=== PATIENT | female | born 1950 | race Caucasian/White ===

== ENCOUNTER → 2016-12-17 | Outpatient (CLI) | payer BC ==
[~2016-12-17] MED LIST: EFFSR150 PO; LEVO50TA60 PO; MELA1TAB3 PO; SIMV20TA2 PO
--- NOTE | 2016-12-17 14:09 | MAMMOGRAPHY REPORT ---
BILATERAL DIGITAL SCREENING MAMMOGRAM WITH CAD: 12/17/2016 CLINICAL HISTORY: Routine screening. Patient has no complaints. TECHNIQUE: Bilateral CC and MLO views were obtained. Current study was also evaluated with a Comput er Aided Detection (CAD) system. COMPARISON: Comparison is made to exams dated: 08/18/2014 mammogram, 08/03/2012 mammogram - [facility], 08/07/2009, and 10/04/2010 mammogram - [facility]. BREAST COMPOSITION: The tissue of both breasts is heterogeneously dense, which may obscure small ma sses. FINDINGS: A 7 mm circumscribed mass in the lower inner left breast is unchanged in size dating back to at least 08/19/2007, therefore likely benign. No new suspicious mass, architectural distortion or cluster of microcalcifications is seen. IMPRESSION: ACR BI-RADS CATEGORY 2: BENIGN There is no mammographic evidence of malignancy. A 1 year screening mammogram is recommended. The p atient will receive written notification of the results. Approximately 10% of breast cancers are not detected with mammography. A negative mammographic repor t should not delay biopsy if a clinically suggestive mass is present. Katie Montelongo M.D. ay/:12/17/2016 12:16:44 Hazmat Truck Driver: Ashley LACKEY(Wan)([place]), [facility] letter sent: Normal 1/2 BI-RADS Code: ACR BI-RADS Category 2: Benign
== END | disposition home or self-care (01) ==
LOC: C.MAMM 11:10
PROVIDERS: ATTEND Internal Medicine
DX: Z12.31 Encounter for screening mammogram for malignant neoplasm of breast (principal)

== ENCOUNTER → 2016-12-30 | Outpatient (CLI) | payer BC | END | disposition home or self-care (01) | LOC: C.PAPS 09:33 | PROVIDERS: ATTEND Obstetrics & Gynecology | DX: Z01.419 Encounter for gynecological examination (general) (routine) without abnormal findings (principal) ==

== ENCOUNTER 2020-07-20 21:09 | Inpatient (IN) ==
[2020-07-20] MEDS ORDERED: ONDANSETRON INJ 2 MG/ML 2 ML VIAL IV STA (21:43)
[2020-07-20] MEDS ORDERED: SODIUM CHLORIDE 0.9% 500 ML IV SCH (21:45)
[2020-07-20 21:59] LABS: Hematocrit (blood only) 34.8 % (37-47); Hemoglobin 11.8 g/dL (12.0-16.0); Immature Granulocytes # (auto) 0.02 K/uL (0.00-0.02); Immature Granulocytes % (auto) 0.2 %; Lymphocytes # (auto) 1.03 K/uL (1.2-3.4); Mean Corpuscular Hemoglobin 31.9 pg (25-34); Mean Corpuscular Hgb Conc 33.9 g/dL (32-36); Mean Corpuscular Volume 94.1 fL (80-100); Mean Platelet Volume 9.6 fL (7.4-10.4); Monocytes # (auto) 0.27 K/uL (0.11-0.59); Monocytes % (auto) 2.1 %; Neutrophils # (auto) 11.52 K/uL (1.4-6.5); Neutrophils % (auto) 89.7 %; Platelet Count 302 K/uL (130-400); RDW Coefficient of Variation 11.6 % (11.5-14.5); RDW Standard Deviation 39.5 fL (36.4-46.3); White Blood Count 12.84 K/uL (4.8-10.8)
[2020-07-20 22:17] LABS: Alanine Aminotransferase 21 U/L (12-78); Albumin Level 3.7 gm/dl (3.4-5.0); Aspartate Aminotransferase 21 U/L (15-37); BUN Creatinine Ratio 15.2 (10-20); Blood Urea Nitrogen 13 mg/dl (7-18); Calcium 8.7 mg/dl (8.5-10.1); Carbon Dioxide 25 mmol/L (21-32); Chloride 99 mmol/L (98-107); Est GFR (African American) 85.2; Est GFR (Non-African American) 73.5; Glucose 148 mg/dl (70-99); Potassium 3.8 mmol/L (3.5-5.1); Sodium 132 mmol/L (136-145)
[2020-07-20 22:19] LABS: Alkaline Phosphatase 79 U/L (45-117); Bilirubin,Total 0.6 mg/dl (0.2-1); Globulin 3.6 gm/dl (2.5-4.0); Total Protein 7.3 gm/dl (6.4-8.2)
[2020-07-20] MEDS ORDERED: METOCLOPRAMIDE HCL INJ 5 MG/ML 2 ML VIAL IV ONE (22:40)
--- NOTE | 2020-07-20 23:09 | Emergency Department Note ---
History of Present Illness General Chief complaint: Vomiting Stated complaint: vomiting History of Present Illness Maximum Pain Intensity: 0 This 70-year-old presents to the ER complaining of nausea and vomiting since having surgery today by OB Location: Abdomen Quality: Nauseated Severity: Moderate Duration: Today Timing: Today Context: Patient was concerned and came in Modifying factors: better with nothing; worse with activity Patient had bilateral oophorectomy by Dr. Hogue. Patient states she has not urinated since the surgery. She has vomited once. Patient denies chest pain, dyspnea, abdominal pain, fever, chills, flulike illness. Home Medications Home Medications Medication Instructions Recorded Confirmed Type aspirin 81 mg PO QAM 12/20/19 07/20/20 History levothyroxine 50 mcg PO QAM 12/20/19 07/20/20 History venlafaxine 75 mg PO QAM 12/20/19 07/20/20 History diphenhydramine HCl [Benadryl] 25 mg PO HS PRN 12/25/19 07/20/20 History hydrocodone-acetaminophen [[place]annel[place]] 1 tab PO Q8H PRN #9 tab 12/25/19 07/20/20 Rx melatonin 5 mg PO HS PRN 12/25/19 07/20/20 History atorvastatin 20 mg PO HS 07/06/20 07/20/20 History lisinopril 5 mg PO QAM 07/06/20 07/20/20 History metoprolol succinate 12.5 mg PO QAM 07/06/20 07/20/20 History ibuprofen 600 mg PO Q6H #30 tab 07/20/20 07/20/20 Rx Allergies Allergy/AdvReac Type Severity Reaction Status Date / Time codeine AdvReac Mild difficulty Unverified 07/20/20 21:47 moving arms/legs Past Med/Surg History Medical History CAD (coronary artery disease) Cardiac cath 01/2020 with 30% mid RCA lesion that was "hemodynamically insignificant with otherwise normal coronary arteries Degenerative disc disease, cervical Depression Diverticular disease History of migraine Hyperlipidemia Hypothyroidism Nonischemic cardiomyopathy Noted on echo-- per 01/2020 cardiac cath: EF 55% by LV gram with mild HK. Severe inferior HK on echo NOT seen on LV gram. Ovarian mass Surgical History History of blepharoplasty History of colonoscopy History of tonsillectomy and adenoidectomy History of tubal ligation History of wisdom tooth extraction Hx of cardiac cath 01/2020 Family History Aunt Family hx of colon cancer Social History Smoking Status: Never smoker Second Hand Exposure: No; Hx Alcohol Use: Yes Alcohol type: wine Hx Substance Use: No Preferred Language: Fijian Communication Ability: Effective Manager Project Required: No Beliefs That Will Affect Care: None Current Living Situation: Spouse Feels Safe at Home: Yes Review of Systems A total of 10 systems reviewed and were otherwise negative Physical Exam Vital Signs Vital Signs - 24 hr 07/20/20 21:10 07/20/20 21:48 07/20/20 21:52 Temperature 37.0 C Temperature Source Oral Pulse Rate 111 H 89 Pulse Rate from SpO2 Sensor Respiratory Rate 24 20 Respiratory Effort / Characteristics Non-Labored Spontaneous Respiratory Depth Normal Blood Pressure 153/79 H 150/87 H Blood Pressure Mean 103 101 Pulse Oximetry 94 97 98 Oxygen Delivery Method Room Air Room Air Sepsis Recent Fever Within 48 Hours Yes Sepsis New/Unexplained Change in Mental Status N/A Sepsis Action Taken by Nursing No Action Required 07/20/20 22:00 07/20/20 22:30 07/20/20 23:00 Temperature Temperature Source Pulse Rate 92 H 87 83 Pulse Rate from SpO2 Sensor Respiratory Rate 18 16 20 Respiratory Effort / Characteristics Respiratory Depth Blood Pressure 145/79 H 149/85 H 150/72 H Blood Pressure Mean 118 113 118 Pulse Oximetry 97 97 97 Oxygen Delivery Method Sepsis Recent Fever Within 48 Hours Sepsis New/Unexplained Change in Mental Status Sepsis Action Taken by Nursing 07/20/20 23:01 07/20/20 23:30 07/21/20 00:00 Temperature Temperature Source Pulse Rate 85 78 78 Pulse Rate from SpO2 Sensor 85 Respiratory Rate 17 16 18 Respiratory Effort / Characteristics Respiratory Depth Blood Pressure 142/85 H 148/72 H Blood Pressure Mean 101 90 Pulse Oximetry 97 96 95 Oxygen Delivery Method Sepsis Recent Fever Within 48 Hours Sepsis New/Unexplained Change in Mental Status Sepsis Action Taken by Nursing 07/21/20 00:45 Temperature Temperature Source Pulse Rate 82 Pulse Rate from SpO2 Sensor Respiratory Rate 20 Respiratory Effort / Characteristics Respiratory Depth Blood Pressure 140/82 Blood Pressure Mean 95 Pulse Oximetry 98 Oxygen Delivery Method Sepsis Recent Fever Within 48 Hours Sepsis New/Unexplained Change in Mental Status Sepsis Action Taken by Nursing VITALS: Vitals are noted on the nurse's note and reviewed by myself. Vital signs stable. GENERAL: Pleasant female, in no acute distress, nondiaphoretic, well-developed well-nourished. SKIN: Capillary reflex less than 2 seconds. HEENT: Normocephalic. PERRLA. EOMI. Nares patent. Mucous membranes moist. Neck is supple without nuchal rigidity. HEART: Regular rate and rhythm LUNGS: Clear to auscultation bilaterally without wheezes, rales or rhonchi. No retractions or accessory muscle use. ABDOMEN: Positive bowel sounds x 4. Normal tympanic percussion. Soft, incisional sites intact without signs of infection, nontender, without masses or organomegaly. Gómez sign negative. No guarding or rebound tenderness. No CVA tenderness MUSCULOSKELETAL: No gross musculoskeletal defects. NEURO: Patient was alert and oriented to person place and time. No focal neurological deficits. Course Administered Medications Discontinued Medications Sodium Chloride (Nss) 500 mls @ 999 mls/hr IV .Q31M LUCIA Stop: 07/20/20 22:15 Last Infusion: 07/20/20 22:44 Dose: 0 mls/hr Documented by: [id number] Admin: 07/20/20 21:52 Dose: 999 mls/hr Documented by: [id number] Sodium Chloride (Nss 1000ml) 500 mls @ 999 mls/hr IV .Q31M ONE Stop: 07/21/20 01:01 Last Infusion: 07/21/20 01:26 Dose: 0 mls/hr Documented by: [id number] Admin: 07/21/20 00:46 Dose: 999 mls/hr Documented by: [id number] Metoclopramide HCl (Metoclopramide Hcl Inj 5 Mg/Ml 2 Ml Vial) 5 mg IV ONE ONE Stop: 07/20/20 22:41 Last Admin: 07/20/20 22:43 Dose: 5 mg Documented by: [id number] Ondansetron HCl (Ondansetron Inj 2 Mg/Ml 2 Ml Vial) 4 mg IV NOW STA Stop: 07/20/20 21:44 Last Admin: 07/20/20 21:52 Dose: 4 mg Documented by: [id number] Ondansetron HCl (Ondansetron Inj 2 Mg/Ml 2 Ml Vial) 4 mg IV NOW STA Stop: 07/21/20 00:33 Last Admin: 07/21/20 00:46 Dose: 4 mg Documented by: [id number] Medical Decision Making Medical Records Attestation: I reviewed the patient's medical records. Home Medications Current Medication List: was personally reviewed by me Laboratory Data Attestation: I reviewed the patient's lab results. Result diagrams: 07/20/20 21:45 07/20/20 21:45 Lab Results 07/20/20 07/20/20 07/20/20 Range/Units 21:45 21:45 22:25 WBC 12.84 H (4.8-10.8) K/uL RBC 3.70 L (4.2-5.4) M/uL Hgb 11.8 L (12.0-16.0) g/dL Hct 34.8 L (37-47) % MCV 94.1 (80-100) fL MCH 31.9 (25-34) pg MCHC 33.9 (32-36) g/dL RDW Std Deviation 39.5 (36.4-46.3) fL RDW Coeff of Radha 11.6 (11.5-14.5) % Plt Count 302 (130-400) K/uL MPV 9.6 (7.4-10.4) fL Immature Gran % (Auto) 0.2 % Neut % (Auto) 89.7 % Lymph % (Auto) 8.0 % [place] % (Auto) 2.1 % Eos % (Auto) 0.0 % Baso % (Auto) 0.0 % Neut # (Auto) 11.52 H (1.4-6.5) K/uL Lymph # (Auto) 1.03 L (1.2-3.4) K/uL [place] # (Auto) 0.27 (0.11-0.59) K/uL Eos # (Auto) 0.00 (0-0.5) K/uL Baso # (Auto) 0.00 (0-0.2) K/uL Immature Gran # (Auto) 0.02 (0.00-0.02) K/uL Sodium 132 L (136-145) mmol/L Potassium 3.8 (3.5-5.1) mmol/L Chloride 99 (98-107) mmol/L Carbon Dioxide 25 (21-32) mmol/L Anion Gap 8.0 (3-11) BUN 13 (7-18) mg/dl Creatinine 0.82 (0.6-1.2) mg/dl Est Cr Clr Drug Dosing Not Reportable Est GFR ( Amer) 85.2 Est GFR (Non-Af Amer) 73.5 BUN/Creatinine Ratio 15.2 (10-20) Glucose 148 H (70-99) mg/dl Calcium 8.7 (8.5-10.1) mg/dl Magnesium 2.1 (1.8-2.4) mg/dl Total Bilirubin 0.6 (0.2-1) mg/dl AST 21 (15-37) U/L ALT 21 (12-78) U/L Alkaline Phosphatase 79 (45-117) U/L Total Protein 7.3 (6.4-8.2) gm/dl Albumin 3.7 (3.4-5.0) gm/dl Globulin 3.6 (2.5-4.0) gm/dl Albumin/Globulin Ratio 1.0 (0.9-2) TSH 1.160 (0.300-4.500) uIu/ml Urine Color Yellow Urine Appearance Clear (Clear) Urine pH 7.0 (4.5-7.5) Ur Specific [place] 1.022 (1.000-1.030) Urine Protein Trace H (Negative) Urine Glucose (UA) Negative (Negative) Urine Ketones Trace H (Negative) Urine Blood 2+ H (Negative) Urine Nitrite Negative (Negative) Urine Bilirubin Negative (Negative) Urine Urobilinogen Negative (Negative) Ur Leukocyte Esterase 2+ H (Negative) Urine WBC (Auto) 10-30 H (0-5) /hpf Urine RBC (Auto) >30 H (0-4) /hpf U Hyaline Cast (Auto) 1-5 (0-5) /lpf U Epithel Cells (Auto) >30 H (0-5) /lpf Urine Bacteria (Auto) Negative (Negative) Ur Renal Epithelial Cell Not Reportable Urine Mucus Present A (None Prsent) Imaging Data Attestation: I personally reviewed and interpreted this imaging study as follows: Blood Pressure Blood Pressure Findings: Elevated blood pressure Blood Pressure Disposition: Referred to patients primary care provider MDM Narrative Prior records/ancillary studies reviewed. Triage Nursing notes reviewed. Additional history obtained from the family. The patient's history was concerning for nausea, vomiting, who had surgery today Differential diagnosis: Etiologies such as side effect anesthesia, urinary retention, UTI, postsurgical complication, gastroenteritis, food borne illness, infections, appendicitis, diverticulitis, inflammatory bowel disease, obstruction, GI bleed, biliary pathology, as well as others were entertained. Physical examination findings: As above. Abdominal examination revealed tenderness. Vital signs reviewed and revealed stable. ER treatment provided: IV hydration 1 L NSS. Zofran, Reglan Bladder scan with 200 mL's On reassessment the patient felt better. Patient was tolerating p.o. intake. Diagnostics interpretation by me: The labs revealed mild leukocytosis. Mild hyperglycemia without DKA Consultation: A consultation was placed with OB Dr. Rizo and recommends medical admission for the vomiting and weakness. I spoke to Dr. Gordon, the hospitalist. The case was discussed and diagnostics were reviewed. The patient was evaluated in the ER for further treatment. This appears to be consistent with nausea vomiting and weakness. Patient was t oo weak to walk. Symptoms could be related to recent surgery. Patient did not have acute abdomen on exam. Patient is agreeable to treatment plan of admission. OB and medicine were consulted.. Stable labs. No UTI. By the evaluation outlined above emergent etiologies such as appendicitis, diver ticulitis, obstruction, cardiac sources, mesenteric ischemia, aortic pathology, inflammatory bowel disease, renal colic, PUD, biliary pathology, UTI, as well as others were deemed relatively unlikely. The pt informed about the findings as listed above. All questions were answered and pleased with the treatment. The chart was completed utilizing [employer] voice recognition software. Gr ammatical errors, random word insertions, pronoun errors, and incomplete sentences are an occassional consequence of this system due to software limitations, ambient noise, and hardware issues. Any formal questions or concerns about the content, text, or information contained within the body of this dictation should be directly addressed to the physician bioinformatics assistant for clarification. Impression & Plan Nausea & vomiting, Weakness Discharge Plan Visit Data Chief Complaint: Vomiting Stated Complaint: vomiting ED Provider: Nikita Pat ED Midlevel Provider: Ange Juarez Discharge Problem: Nausea & vomiting, Weakness Patient Disposition: Being Evaluated by Hospitalist Condition: Good Forms Stand Alone Forms: My [facility] [employer] Prescriptions Prescriptions: No Action aspirin 81 mg Tablet,Delayed Release (Dr/Ec) 81 mg PO QAM RF: 0 levothyroxine 50 mcg Tablet 50 mcg PO QAM RF: 0 venlafaxine 75 mg Tablet Extended Release 24hr 75 mg PO QAM RF: 0 diphenhydramine HCl [Benadryl] 25 mg Capsule 25 mg PO HS PRN (Reason: Sleep) RF: 0 melatonin 2.5 mg Tablet,Chewable 5 mg PO HS PRN (Reason: Sleep) RF: 0 hydrocodone-acetaminophen [Cannel[place]] 5-325 mg tablet 1 tab PO Q8H PRN (Reason: pain) Qty: 9 RF: 0 lisinopril 5 mg Tablet 5 mg PO QAM RF: 0 atorvastatin 20 mg Tablet 20 mg PO HS RF: 0 metoprolol succinate 25 mg Tablet Extended Release 24 Hr 12.5 mg PO QAM RF: 0 ibuprofen 600 mg Tablet 600 mg PO Q6H Qty: 30 RF: 0 Referrals Referrals: Shahnaz Woodson MD [Primary Care Provider] - Discharge Problem: Nausea & vomiting Qualifiers: Vomiting type: unspecified Vomiting Intractability: non-intractable Qualified Code(s): R11.2 - Nausea with vomiting, unspecified
[2020-07-20 23:38] LABS: Appearance Urine Clear (Clear); Bacteria Urine Automated Negative (Negative); Bilirubin Urine Negative (Negative); Blood Urine 2+ (Negative); Color Urine Yellow; Epithelial Cell Urine Auto >30 /lpf (0-5); Glucose Urine UA Negative (Negative); Ketones Urine Trace (Negative); Leukocyte Esterase Urine 2+ (Negative); Nitrite Urine Negative (Negative); Protein Urine Trace (Negative); RBC Urine Automated >30 /hpf (0-4); Specific Gravity Urine 1.022 (1.000-1.030); Urobilinogen Urine Negative (Negative)
[2020-07-21 00:11] LABS: Mucus Urine Present (None Prsent)
[2020-07-21] MEDS ORDERED: SODIUM CHLORIDE 0.9% 1000ML 500 ML IV ONE (00:31)
[2020-07-21] MEDS ORDERED: ONDANSETRON INJ 2 MG/ML 2 ML VIAL IV STA (00:32)
--- NOTE | 2020-07-21 01:07 | Emergency Department Note ---
General (ED) Blank Date of Service July 21, 2020 I have personally evaluated this patient examined her and reviewed the pertinent labs and data. I have discussed the case with Larry, the physician assistant kitchen manager and agree with the plan. Please refer to the PA note. This patient had a bilateral oophorectomy today done by Dr. De Jesus. This was done because she had a large cyst that was intermittently coursing. She had this done laparoscopically when she got home she started feeling nauseated. She did take GoLYTELY prior to the procedure and has not had any bowel movement since then she has had some decreased urine output as well. She denies abdominal pain just feeling very nauseated. She has received IV fluids as well as antiemetics here. On my exam, her abdomen is benign incisions are intact without redness or warmth or drainage. No signs to suggest infection. Her hemoglobin is in the 11 range. She will be admitted/observed for hydration and further treatment and evaluation and may be that her symptoms are from anesthesia or she could have an ileus.
[2020-07-21 01:22] LABS: Magnesium 2.1 mg/dl (1.8-2.4)
[2020-07-21] MEDS ORDERED: CEFEPIME 2,000 MG/20 ML VIAL IV STA (01:44)
[2020-07-21] MEDS ORDERED: LORazepam 0.25 MG/0.5 ML VIAL IV PRN (01:44)
--- NOTE | 2020-07-21 01:47 | History & Physical Report ---
Date of Service July 21, 2020 Assessment & Plan (1) Sepsis: Secondary to complicated UTI Recent BSO for bilateral ovarian cysts chronic systolic heart failure secondary to nonischemic cardiomyopathy (EF 35 to 39%, TTE 2019), patient on the dry side history nonocclusive CAD as per records hx chronic LBBB hypothyroidism, euthyroid as of today's TSH Hyperglycemia possible prediabetes hemoglobin A1c 5.30 October 2018 GMF Cultures, check lactic acid Cefepime Gentle IV hydration Gynecology consult for postop eval (ER provider already in touch with Dr. Arrington.) Update hemoglobin A1c DVT prophylaxis. Lovenox subcu Full code Text document was generated using [employer] voice recognition software. It may contain grammatical or spelling errors. Kindly contact undersigned for clarification of any documentation item in question. History of Present Illness Chief Complaint: Nausea, emesis, urinary retention Primary Care Provider: Garfield Woodson MD History obtained from patient and records. Medical history significant for chronic systolic heart failure secondary to nonischemic cardiomyopathy (EF 35 to 39%, TTE 2019), history nonocclusive CAD as per records, Chronic LBBB, hypothyroidism, mood disorder. Yesterday, patient underwent elective bilateral salpingo-oophorectomy at same- day surgery for bilateral ovarian cysts yesterday. n ER visit last October 2019 for left ovarian torsion. Post procedure yesterday, patient noted dysuria symptoms without urinary retention. No fever, no chills, no chest pain, no S OB. Not enough urine on postop bladder scan as per patient. Patient discharged home with instructions to drink a lot of water. At home, patient with bothersome urinary retention/dysuria later followed by nausea symptoms. No actual abdominal/flank pain as per patient. On the way to the ER, patient had episodes of emesis. Patient noted to be tremulous as she alighted from vehicle as per patient account. Urine noted to be very dark at the ER. Intractable symptoms at the ER. 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 Allergies Allergy/AdvReac Type Severity Reaction Status Date / Time codeine AdvReac Mild difficulty Unverified 07/20/20 21:47 moving arms/legs Home Medications Home Medications Medication Instructions Recorded Confirmed Type aspirin 81 mg PO QAM 12/20/19 07/20/20 History levothyroxine 50 mcg PO QAM 12/20/19 07/20/20 History venlafaxine 75 mg PO QAM 12/20/19 07/20/20 History diphenhydramine HCl [Benadryl] 25 mg PO HS PRN 12/25/19 07/20/20 History hydrocodone-acetaminophen [[place]] 1 tab PO Q8H PRN #9 tab 12/25/19 07/20/20 Rx melatonin 5 mg PO HS PRN 12/25/19 07/20/20 History atorvastatin 20 mg PO HS 07/06/20 07/20/20 History lisinopril 5 mg PO QAM 07/06/20 07/20/20 History metoprolol succinate 12.5 mg PO QAM 07/06/20 07/20/20 History ibuprofen 600 mg PO Q6H #30 tab 07/20/20 07/20/20 Rx Past Med/Surg History Medical History CAD (coronary artery disease) Cardiac cath 01/2020 with 30% mid RCA lesion that was "hemodynamically insignificant with otherwise normal coronary arteries Degenerative disc disease, cervical Depression Diverticular disease History of migraine Hyperlipidemia Hypothyroidism Nonischemic cardiomyopathy Noted on echo-- per 01/2020 cardiac cath: EF 55% by LV gram with mild HK. Severe inferior HK on echo NOT seen on LV gram. Ovarian mass Surgical History History of blepharoplasty History of colonoscopy History of tonsillectomy and adenoidectomy History of tubal ligation History of wisdom tooth extraction Hx of cardiac cath 01/2020 Family History Aunt Family hx of colon cancer Social History Smoking Status: Never smoker Second Hand Exposure: No; Hx Alcohol Use: Yes Alcohol type: wine Hx Substance Use: No Preferred Language: Vietnamese Communication Ability: Effective It Infrastructure Engineer Required: No Beliefs That Will Affect Care: None Current Living Situation: Spouse Other Information That Helps Us Care for You: No Feels Safe at Home: Yes Safety Concerns: Feels Safe At This Time Review of Systems Review of Systems: As per HPI, all 10 systems reviewed, all other ROS negative Physical Exam Physical Exam: GENERAL: uncomfortable, anxious, no respiratory distress SKIN: Normal color, warm HEENT: [place] palpebral conjunctivae, no ptosis, dry buccal mucosa NECK : Supple, no tenderness CHEST : CTA, no tenderness HEART : RRR, no obvious murmurs ABDOMEN: Some distention, nontender EXTREMITIES : No LE swelling/tenderness, no other conspicuous deformities noted NEUROLOGIC : Coherent, no facial asymmetry, tremulous hands, no other gross focality Results & Data Results & Data ([facility] [place]) Vital Signs (Past 12 Hours) Vital Signs Temp Pulse Resp BP Pulse Ox 07/21/20 01:30 96 H 16 142/89 H 97 07/21/20 01:00 81 18 155/88 H 99 07/21/20 00:45 82 20 140/82 98 07/21/20 00:00 78 18 148/72 H 95 07/20/20 23:30 78 16 142/85 H 96 07/20/20 23:01 85 17 97 07/20/20 23:00 83 20 150/72 H 97 07/20/20 22:30 87 16 149/85 H 97 07/20/20 22:00 92 H 18 145/79 H 97 07/20/20 21:52 98 07/20/20 21:48 89 20 150/87 H 97 07/20/20 21:10 37.0 C 111 H 24 153/79 H 94 Laboratory Results Laboratory Results WBC 12.84 K/uL (4.8-10.8) H 07/20/20 21:45 RBC 3.70 M/uL (4.2-5.4) L 07/20/20 21:45 Hgb 11.8 g/dL (12.0-16.0) L 07/20/20 21:45 Hct 34.8 % (37-47) L 07/20/20 21:45 MCV 94.1 fL (80-100) 07/20/20 21:45 MCH 31.9 pg (25-34) 07/20/20 21:45 MCHC 33.9 g/dL (32-36) 07/20/20 21:45 RDW Std Deviation 39.5 fL (36.4-46.3) 07/20/20 21:45 RDW Coeff of Radha 11.6 % (11.5-14.5) 07/20/20 21:45 Plt Count 302 K/uL (130-400) 07/20/20 21:45 MPV 9.6 fL (7.4-10.4) 07/20/20 21:45 Immature Gran % (Auto) 0.2 % 07/20/20 21:45 Neut % (Auto) 89.7 % 07/20/20 21:45 Lymph % (Auto) 8.0 % 07/20/20 21:45 [place] % (Auto) 2.1 % 07/20/20 21:45 Eos % (Auto) 0.0 % 07/20/20 21:45 Baso % (Auto) 0.0 % 07/20/20 21:45 Neut # (Auto) 11.52 K/uL (1.4-6.5) H 07/20/20 21:45 Lymph # (Auto) 1.03 K/uL (1.2-3.4) L 07/20/20 21:45 [place] # (Auto) 0.27 K/uL (0.11-0.59) 07/20/20 21:45 Eos # (Auto) 0.00 K/uL (0-0.5) 07/20/20 21:45 Baso # (Auto) 0.00 K/uL (0-0.2) 07/20/20 21:45 Immature Gran # (Auto) 0.02 K/uL (0.00-0.02) 07/20/20 21:45 Sodium 132 mmol/L (136-145) L 07/20/20 21:45 Potassium 3.8 mmol/L (3.5-5.1) 07/20/20 21:45 Chloride 99 mmol/L (98-107) 07/20/20 21:45 Carbon Dioxide 25 mmol/L (21-32) 07/20/20 21:45 Anion Gap 8.0 (3-11) 07/20/20 21:45 BUN 13 mg/dl (7-18) 07/20/20 21:45 Creatinine 0.82 mg/dl (0.6-1.2) 07/20/20 21:45 Est Cr Clr Drug Dosing Not Reportable 07/20/20 21:45 Est GFR ( Amer) 85.2 07/20/20 21:45 Est GFR (Non-Af Amer) 73.5 07/20/20 21:45 BUN/Creatinine Ratio 15.2 (10-20) 07/20/20 21:45 Glucose 148 mg/dl (70-99) H 07/20/20 21:45 Calcium 8.7 mg/dl (8.5-10.1) 07/20/20 21:45 Magnesium 2.1 mg/dl (1.8-2.4) 07/20/20 21:45 Total Bilirubin 0.6 mg/dl (0.2-1) 07/20/20 21:45 AST 21 U/L (15-37) 07/20/20 21:45 ALT 21 U/L (12-78) 07/20/20 21:45 Alkaline Phosphatase 79 U/L (45-117) 07/20/20 21:45 Total Protein 7.3 gm/dl (6.4-8.2) 07/20/20 21:45 Albumin 3.7 gm/dl (3.4-5.0) 07/20/20 21:45 Globulin 3.6 gm/dl (2.5-4.0) 07/20/20 21:45 Albumin/Globulin Ratio 1.0 (0.9-2) 07/20/20 21:45 Procalcitonin < 0.05 ng/ml (0-0.5) 07/20/20 21:45 TSH 1.160 uIu/ml (0.300-4.500) 07/20/20 21:45 Urine Color Yellow 07/20/20 22:25 Urine Appearance Clear (Clear) 07/20/20 22:25 Urine pH 7.0 (4.5-7.5) 07/20/20 22:25 Ur Specific [place] 1.022 (1.000-1.030) 07/20/20 22:25 Urine Protein Trace (Negative) H 07/20/20 22:25 Urine Glucose (UA) Negative (Negative) 07/20/20 22:25 Urine Ketones Trace (Negative) H 07/20/20 22:25 Urine Blood 2+ (Negative) H 07/20/20 22:25 Urine Nitrite Negative (Negative) 07/20/20 22:25 Urine Bilirubin Negative (Negative) 07/20/20 22:25 Urine Urobilinogen Negative (Negative) 07/20/20 22:25 Ur Leukocyte Esterase 2+ (Negative) H 07/20/20 22:25 Urine WBC (Auto) 10-30 /hpf (0-5) H 07/20/20 22:25 Urine RBC (Auto) >30 /hpf (0-4) H 07/20/20 22:25 U Hyaline Cast (Auto) 1-5 /lpf (0-5) 07/20/20 22:25 U Epithel Cells (Auto) >30 /lpf (0-5) H 07/20/20 22:25 Urine Bacteria (Auto) Negative (Negative) 07/20/20 22:25 Ur Renal Epithelial Cell Not Reportable 07/20/20 22:25 Urine Mucus Present (None Prsent) A 07/20/20 22:25 Diagnostic Findings Chest x-ray as per my interpretation no infiltrate
[2020-07-21] MEDS ORDERED: LORazepam 0.25 MG/0.5 ML VIAL IV STA (01:50)
[2020-07-21] MEDS ORDERED: LORazepam 2 MG/4 ML VIAL ONE (01:50)
[2020-07-21] MEDS ORDERED: NSS + 20MEQ KCL 20 MEQ/1,000 ML BAG IV ONE (02:10)
[2020-07-21] MEDS: METOPROLOL SUCC 25MG EXT REL TAB PO SCH (03:35)
[2020-07-21] MEDS ORDERED: HYDROCODONE/ACETAMOPHEN 5/325MG TAB PO PRN (03:47)
[2020-07-21] MEDS ORDERED: PROMETHAZINE HCL 12.5 MG in SODIUM CHLORIDE 0.9% 50 ML IV PRN (03:47)
[2020-07-21] MEDS ORDERED: KETOROLAC TROMETHAMINE 15 MG/ML VIAL IV PRN (03:47)
[2020-07-21] MEDS ORDERED: ACETAMINOPHEN 325 MG TAB PO PRN (03:47)
[2020-07-21] MEDS ORDERED: POLYETHYLENE (MIRALAX) 17 GM PACK PO PRN (03:47)
[2020-07-21] MEDS ORDERED: MELATONIN 3 MG TAB PO PRN (04:10)
[2020-07-21] MEDS: PATIENT'S HEIGHT AND/OR WEIGHT NEEDED SCH ×2 (04:17→06:40)
[2020-07-21 06:09] LABS: Basophils # (auto) 0.01 K/uL (0-0.2); Basophils % (auto) 0.1 %; Eosinophils # (auto) 0.01 K/uL (0-0.5); Eosinophils % (auto) 0.1 %; Hematocrit (blood only) 32.5 % (37-47); Hemoglobin 10.8 g/dL (12.0-16.0); Immature Granulocytes # (auto) 0.03 K/uL (0.00-0.02); Immature Granulocytes % (auto) 0.2 %; Lymphocytes # (auto) 1.91 K/uL (1.2-3.4); Lymphocytes % (auto) 14.2 %; Mean Corpuscular Hemoglobin 31.8 pg (25-34); Mean Corpuscular Hgb Conc 33.2 g/dL (32-36); Mean Corpuscular Volume 95.6 fL (80-100); Mean Platelet Volume 9.6 fL (7.4-10.4); Monocytes # (auto) 0.99 K/uL (0.11-0.59); Monocytes % (auto) 7.4 %; Platelet Count 288 K/uL (130-400); RDW Coefficient of Variation 11.7 % (11.5-14.5); RDW Standard Deviation 40.5 fL (36.4-46.3); White Blood Count 13.45 K/uL (4.8-10.8)
[2020-07-21 06:37] LABS: BUN Creatinine Ratio 13.3 (10-20); Calcium 8.2 mg/dl (8.5-10.1); Creatinine Clr Calc Pharmacy 53.8 ml/min; Est GFR (African American) 86.5; Est GFR (Non-African American) 74.6; Potassium 4.1 mmol/L (3.5-5.1)
[2020-07-21] MEDS: LEVOTHYROXINE SODIUM 50 MCG TABLET PO SCH (06:40)
[2020-07-21 07:09] LABS: Estimated Average Glucose 126 mg/dl
[2020-07-21] MEDS ORDERED: DAPTOMYCIN CONSULT ACTIVE PRN (07:45)
[2020-07-21] MEDS ORDERED: PIPERACILL/TAZOBAC CONSULT ACTIVE PRN (07:48)
--- NOTE | 2020-07-21 07:50 | XRay Report ---
XR chest 1V portable CLINICAL HISTORY: sepsis COMPARISON STUDY: No previous studies for comparison. FINDINGS: The cardiac and mediastinal contours are normal. There is no evidence of focal pulmonary co nsolidation. There is no evidence of failure. No pleural effusions are visualized.[ IMPRESSION: No active disease in the chest. ACT 112: Negative or not required by law. Electronically signed by: Antonio Adames M.D. 07/21/2020 7:48 AM
[2020-07-21] MEDS ORDERED: PIPERACILLIN/TAZOBACTAM 3.375 GM in DEXTROSE 5% 100 ML IV ONE (08:30)
[2020-07-21] MEDS ORDERED: CEFEPIME CONSULT ACTIVE PRN (09:00)
[2020-07-21] MEDS ORDERED: ENOXAPARIN INJ 30 MG/0.3 ML SYR SQ SCH (09:00)
[2020-07-21] MEDS: DOCUSATE SODIUM 100 MG CAP PO SCH (09:01)
[2020-07-21] MEDS: lisinopriL 5 MG TAB PO SCH (09:01)
[2020-07-21] MEDS: ASPIRIN 81 MG ECTAB PO SCH (09:01)
[2020-07-21] MEDS: VENLAFAXINE HCL XR 75 MG CAPXR PO SCH (09:01)
[2020-07-21] MEDS: DAPTOmycin 200 MG in SYRINGE 0 ML IV SCH (09:11)
--- NOTE | 2020-07-21 11:17 | Gynecologic Progress Note ---
Date of Service July 21, 2020 Assessment & Plan Admission and Anticipated Discharge Date Admission Date: July 21, 2020 Subjective Pt is s/p BSO on 07/20/20 and was discharged home post op Returned to ED for urinary retention, nausea and vomiting Pt is presently on antibx ofr elev WBC Feeling much better Tolerated PO food and Meds this Morning Blood and urine culx Pending Results & Data ([facility]) Vital Signs (Past 12 Hours) Vital Signs Temp Pulse Pulse Resp BP BP Pulse Ox 07/21/20 08:04 37.0 C 80 18 107/64 96 07/21/20 03:45 36.8 C 87 18 128/79 99 07/21/20 02:30 88 16 144/75 H 95 07/21/20 02:00 95 H 18 136/84 94 07/21/20 01:30 96 H 16 142/89 H 97 07/21/20 01:00 81 18 155/88 H 99 07/21/20 00:45 82 20 140/82 98 07/21/20 00:00 78 18 148/72 H 95 07/20/20 23:30 78 16 142/85 H 96
[2020-07-21] MEDS ORDERED: CEFEPIME 2,000 MG in SYRINGE 7.5 ML IV SCH (14:00)
[2020-07-21] MEDS: PIPERACILLIN/TAZOBACTAM 3.375 GM in DEXTROSE 5% 100 ML IV SCH ×2 (14:11→22:37)
--- NOTE | 2020-07-21 15:36 | Hospitalist Progress Note ---
Date of Service July 21, 2020 Assessment & Plan (1) Sepsis: Secondary to complicated UTI Recent BSO for bilateral ovarian cysts Lactic acid 1.8 Blood cultures and urine culture pending Received cefepime on admission, concern for UTI as patient could not void At this point not clear if patient was actually septic on admission, white cell count elevated, could have been due to recent surgery Continue gentle IV hydration Patient is now feeling better, she is able to void urine Gynecology consult for postop eval - Dr. Killian evaluated patient today 07/21 (ER provider contacted Dr. Arrington) Prediabetes Hyperglycemia possible prediabetes hemoglobin A1c 5.30 October 2018 Current A1c 6.0% -consistent with prediabetes Follow-up with PCP Chronic systolic heart failure secondary to nonischemic cardiomyopathy (EF 35 to 39%, TTE 2019), patient on the dry side history nonocclusive CAD as per records hx chronic LBBB Hypothyroidism, euthyroid as of today's TSH DVT prophylaxis. Lovenox subcu on admission, will switch to SCDs Full code Admission and Anticipated Discharge Date Admission Date: July 21, 2020 Subjective Patient is lying in bed, in no acute distress. She said that she feels much better. Yesterday she could not void urine after her surgery, that has resolved, and she has not much trouble urinating now. She was also very tremulous and could not walk yesterday, now she feels much better. Currently denies any fevers, chills, chest pain, shortness of breath, she has some abdominal pain which is expected postop, no nausea or vomiting. She is passing flatus. She is voiding urine. 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 Review of Systems Review of Systems: All systems reviewed & are unremarkable except as noted in HPI & below Constitutional: no fever and no chills Respiratory: no cough and no dyspnea Cardiovascular: no chest pain and no palpitations Gastrointestinal: + abdominal pain (Some abdominal discomfort, postop); no nausea and no vomiting Genitourinary: + dysuria Physical Exam Physical Exam: GENERAL: Elderly female, lying in bed, in no acute distress HEENT: Normocephalic, atraumatic, EOMI, PERRL, pink palpebral conjunctivae NECK : Supple, no tenderness CHEST : CTAB no wheezing, rhonchi or crackles HEART : RRR, no obvious murmurs ABDOMEN: Positive bowel sounds, soft, surgical incisions noted, some mild bruising noted, mild tenderness to palpation EXTREMITIES : No LE swelling/tenderness, moves all 4 extremities spontaneously and without difficulty SKIN: warm, dry, surgical incisions noted on abdomen, and mild bruising, postop NEUROLOGIC : Alert and oriented x3, no facial asymmetry, speech fluent, moves all 4 extremities spontaneously Results & Data Results & Data ([facility]) Vital Signs (Past 12 Hours) Vital Signs Temp Pulse Resp BP Pulse Ox 07/21/20 08:04 37.0 C 80 18 107/64 96 07/21/20 03:45 36.8 C 87 18 128/79 99 Laboratory Results 07/21/20 07/21/20 07/21/20 Range/Units 05:42 05:42 02:11 WBC 13.45 H (4.8-10.8) K/uL RBC 3.40 L (4.2-5.4) M/uL Hgb 10.8 L (12.0-16.0) g/dL Hct 32.5 L (37-47) % MCV 95.6 (80-100) fL MCH 31.8 (25-34) pg MCHC 33.2 (32-36) g/dL RDW Std Deviation 40.5 (36.4-46.3) fL RDW Coeff of Radha 11.7 (11.5-14.5) % Plt Count 288 (130-400) K/uL MPV 9.6 (7.4-10.4) fL Immature Gran % (Auto) 0.2 % Neut % (Auto) 78.0 % Lymph % (Auto) 14.2 % Granite % (Auto) 7.4 % Eos % (Auto) 0.1 % Baso % (Auto) 0.1 % Neut # (Auto) 10.50 H (1.4-6.5) K/uL Lymph # (Auto) 1.91 (1.2-3.4) K/uL Granite # (Auto) 0.99 H (0.11-0.59) K/uL Eos # (Auto) 0.01 (0-0.5) K/uL Baso # (Auto) 0.01 (0-0.2) K/uL Immature Gran # (Auto) 0.03 H (0.00-0.02) K/uL Sodium 133 L (136-145) mmol/L Potassium 4.1 (3.5-5.1) mmol/L Chloride 102 (98-107) mmol/L Carbon Dioxide 25 (21-32) mmol/L Anion Gap 6.0 (3-11) BUN 11 (7-18) mg/dl Creatinine 0.81 (0.6-1.2) mg/dl Est Cr Clr Drug Dosing 53.8 Est GFR ( Amer) 86.5 Est GFR (Non-Af Amer) 74.6 BUN/Creatinine Ratio 13.3 (10-20) Glucose 116 H (70-99) mg/dl Estimat Average Glucose 126 mg/dl Hemoglobin A1c 6.0 H (4.5-5.6) % Lactate (0.4-2.0) mmol/L Calcium 8.2 L (8.5-10.1) mg/dl Magnesium (1.8-2.4) mg/dl Total Bilirubin (0.2-1) mg/dl AST (15-37) U/L ALT (12-78) U/L Alkaline Phosphatase (45-117) U/L Total Protein (6.4-8.2) gm/dl Albumin (3.4-5.0) gm/dl Globulin (2.5-4.0) gm/dl Albumin/Globulin Ratio (0.9-2) Procalcitonin (0-0.5) ng/ml TSH (0.300-4.500) uIu/ml Urine Color Urine Appearance (Clear) Urine pH (4.5-7.5) Ur Specific [place] (1.000-1.030) Urine Protein (Negative) Urine Glucose (UA) (Negative) Urine Ketones (Negative) Urine Blood (Negative) Urine Nitrite (Negative) Urine Bilirubin (Negative) Urine Urobilinogen (Negative) Ur Leukocyte Esterase (Negative) Urine WBC (Auto) (0-5) /hpf Urine RBC (Auto) (0-4) /hpf U Hyaline Cast (Auto) (0-5) /lpf U Epithel Cells (Auto) (0-5) /lpf Urine Bacteria (Auto) (Negative) Ur Renal Epithelial Cell Urine Mucus (None Prsent) 08/29/20 08/28/20 08/28/20 Range/Units 02:11 22:25 21:45 WBC (4.8-10.8) K/uL RBC (4.2-5.4) M/uL Hgb (12.0-16.0) g/dL Hct (37-47) % MCV (80-100) fL MCH (25-34) pg MCHC (32-36) g/dL RDW Std Deviation (36.4-46.3) fL RDW Coeff of Radha (11.5-14.5) % Plt Count (130-400) K/uL MPV (7.4-10.4) fL Immature Gran % (Auto) % Neut % (Auto) % Lymph % (Auto) % Granite % (Auto) % Eos % (Auto) % Baso % (Auto) % Neut # (Auto) (1.4-6.5) K/uL Lymph # (Auto) (1.2-3.4) K/uL Granite # (Auto) (0.11-0.59) K/uL Eos # (Auto) (0-0.5) K/uL Baso # (Auto) (0-0.2) K/uL Immature Gran # (Auto) (0.00-0.02) K/uL Sodium (136-145) mmol/L Potassium (3.5-5.1) mmol/L Chloride (98-107) mmol/L Carbon Dioxide (21-32) mmol/L Anion Gap (3-11) BUN (7-18) mg/dl Creatinine (0.6-1.2) mg/dl Est Cr Clr Drug Dosing Est GFR ( Amer) Est GFR (Non-Af Amer) BUN/Creatinine Ratio (10-20) Glucose (70-99) mg/dl Estimat Average Glucose mg/dl Hemoglobin A1c (4.5-5.6) % Lactate 1.8 (0.4-2.0) mmol/L Calcium (8.5-10.1) mg/dl Magnesium (1.8-2.4) mg/dl Total Bilirubin (0.2-1) mg/dl AST (15-37) U/L ALT (12-78) U/L Alkaline Phosphatase (45-117) U/L Total Protein (6.4-8.2) gm/dl Albumin (3.4-5.0) gm/dl Globulin (2.5-4.0) gm/dl Albumin/Globulin Ratio (0.9-2) Procalcitonin < 0.05 (0-0.5) ng/ml TSH (0.300-4.500) uIu/ml Urine Color Yellow Urine Appearance Clear (Clear) Urine pH 7.0 (4.5-7.5) Ur Specific [place] 1.022 (1.000-1.030) Urine Protein Trace H (Negative) Urine Glucose (UA) Negative (Negative) Urine Ketones Trace H (Negative) Urine Blood 2+ H (Negative) Urine Nitrite Negative (Negative) Urine Bilirubin Negative (Negative) Urine Urobilinogen Negative (Negative) Ur Leukocyte Esterase 2+ H (Negative) Urine WBC (Auto) 10-30 H (0-5) /hpf Urine RBC (Auto) >30 H (0-4) /hpf U Hyaline Cast (Auto) 1-5 (0-5) /lpf U Epithel Cells (Auto) >30 H (0-5) /lpf Urine Bacteria (Auto) Negative (Negative) Ur Renal Epithelial Cell Not Reportable Urine Mucus Present A (None Prsent) 07/20/20 07/20/20 Range/Units 21:45 21:45 WBC 12.84 H (4.8-10.8) K/uL RBC 3.70 L (4.2-5.4) M/uL Hgb 11.8 L (12.0-16.0) g/dL Hct 34.8 L (37-47) % MCV 94.1 (80-100) fL MCH 31.9 (25-34) pg MCHC 33.9 (32-36) g/dL RDW Std Deviation 39.5 (36.4-46.3) fL RDW Coeff of Radha 11.6 (11.5-14.5) % Plt Count 302 (130-400) K/uL MPV 9.6 (7.4-10.4) fL Immature Gran % (Auto) 0.2 % Neut % (Auto) 89.7 % Lymph % (Auto) 8.0 % Granite % (Auto) 2.1 % Eos % (Auto) 0.0 % Baso % (Auto) 0.0 % Neut # (Auto) 11.52 H (1.4-6.5) K/uL Lymph # (Auto) 1.03 L (1.2-3.4) K/uL Granite # (Auto) 0.27 (0.11-0.59) K/uL Eos # (Auto) 0.00 (0-0.5) K/uL Baso # (Auto) 0.00 (0-0.2) K/uL Immature Gran # (Auto) 0.02 (0.00-0.02) K/uL Sodium 132 L (136-145) mmol/L Potassium 3.8 (3.5-5.1) mmol/L Chloride 99 (98-107) mmol/L Carbon Dioxide 25 (21-32) mmol/L Anion Gap 8.0 (3-11) BUN 13 (7-18) mg/dl Creatinine 0.82 (0.6-1.2) mg/dl Est Cr Clr Drug Dosing Not Reportable Est GFR ( Amer) 85.2 Est GFR (Non-Af Amer) 73.5 BUN/Creatinine Ratio 15.2 (10-20) Glucose 148 H (70-99) mg/dl Estimat Average Glucose mg/dl Hemoglobin A1c (4.5-5.6) % Lactate (0.4-2.0) mmol/L Calcium 8.7 (8.5-10.1) mg/dl Magnesium 2.1 (1.8-2.4) mg/dl Total Bilirubin 0.6 (0.2-1) mg/dl AST 21 (15-37) U/L ALT 21 (12-78) U/L Alkaline Phosphatase 79 (45-117) U/L Total Protein 7.3 (6.4-8.2) gm/dl Albumin 3.7 (3.4-5.0) gm/dl Globulin 3.6 (2.5-4.0) gm/dl Albumin/Globulin Ratio 1.0 (0.9-2) Procalcitonin (0-0.5) ng/ml TSH 1.160 (0.300-4.500) uIu/ml Urine Color Urine Appearance (Clear) Urine pH (4.5-7.5) Ur Specific [place] (1.000-1.030) Urine Protein (Negative) Urine Glucose (UA) (Negative) Urine Ketones (Negative) Urine Blood (Negative) Urine Nitrite (Negative) Urine Bilirubin (Negative) Urine Urobilinogen (Negative) Ur Leukocyte Esterase (Negative) Urine WBC (Auto) (0-5) /hpf Urine RBC (Auto) (0-4) /hpf U Hyaline Cast (Auto) (0-5) /lpf U Epithel Cells (Auto) (0-5) /lpf Urine Bacteria (Auto) (Negative) Ur Renal Epithelial Cell Urine Mucus (None Prsent) Medications Administered Current Inpatient Medications Acetaminophen (Acetaminophen 325 Mg Tab) 650 mg PO Q4H PRN PRN Reason: pain/fever Stop: 08/20/20 03:46 Hydrocodone Bitart/Acetaminophen (Hydrocodone/Acetamophen 5/325mg Tab) 1 tab PO QID PRN PRN Reason: Pain Stop: 08/04/20 03:46 Aspirin (Aspirin 81 Mg Ectab) 81 mg PO QAM [facility] Stop: 08/20/20 08:59 Last Admin: 07/21/20 09:01 Dose: 81 mg Documented by: Atorvastatin Calcium (Atorvastatin 20 Mg Tab) 20 mg PO HS [facility] Stop: 08/20/20 20:59 Docusate Sodium (Docusate Sodium 100 Mg Cap) 100 mg PO DAILY [facility] Stop: 08/20/20 08:59 Last Admin: 07/21/20 09:01 Dose: 100 mg Documented by: Enoxaparin Sodium (Enoxaparin Inj 30 Mg/0.3 Ml Syr) 30 mg SQ QAM [facility] Stop: 08/20/20 08:59 Last Admin: 07/21/20 09:02 Dose: 30 mg Documented by: Lorazepam (Ativan) 0.25 mg in 0.5 mls @ 0.5 mls/min IV Q4H PRN PRN Reason: Anxiety Stop: 08/20/20 01:43 Potassium Chloride/Sodium Chloride (Normal Saline W/20 Meq Kcl) 20 meq in 1,000 mls @ 50 mls/hr IV .Q20H ONE Stop: 07/21/20 22:09 Last Admin: 07/21/20 05:51 Dose: 50 mls/hr Documented by: Promethazine HCl 12.5 mg/ (Sodium Chloride) 50.5 mls @ 202 mls/hr IV Q6H PRN PRN Reason: Nausea And Vomiting Stop: 08/20/20 03:46 Piperacillin Sod/Tazobactam (Sod 3.375 gm/ Dextrose) 115 mls @ 28.75 mls/hr IV Q8H [facility]; Protocol Stop: 07/31/20 13:59 Last Admin: 07/21/20 14:11 Dose: 28.8 mls/hr Documented by: Daptomycin 200 mg/ Syringe 4 mls @ 2 mls/min IV Q24H [facility]; Protocol Stop: 07/31/20 08:59 Last Admin: 07/21/20 09:11 Dose: 2 mls/min Documented by: Ketorolac Tromethamine (Ketorolac Tromethamine 15 Mg/Ml Vial) 15 mg IV Q6H PRN PRN Reason: Pain Stop: 07/26/20 03:46 Levothyroxine Sodium (Levothyroxine Sodium 50 Mcg Tablet) [facility]: 08/20/20 06:29 Last Admin: 07/21/20 06:40 Dose: 50 mcg Documented by: Lisinopril (Lisinopril 5 Mg Tab) 5 mg PO [facility] Stop: 08/20/20 08:59 Last Admin: 07/21/20 09:01 Dose: 5 mg Documented by: Melatonin (Melatonin 3 Mg Tab) 6 mg PO HSZ PRN PRN Reason: Sleep Stop: 08/20/20 04:09 Metoprolol Succinate (Metoprolol Succ 25mg Ext Rel Tab) 12.5 mg PO [facility] Stop: 08/20/20 02:09 Last Admin: 07/21/20 03:35 Dose: 12.5 mg Documented by: Miscellaneous Information (Daptomycin Consult Active) 1 ea N/A UD PRN PRN Reason: Consult Stop: 08/20/20 07:44 Miscellaneous Information (Piperacill/Tazobac Consult Active) 1 ea N/A UD PRN PRN Reason: Consult Stop: 08/20/20 07:47 Polyethylene Glycol (Polyethylene (Miralax) 17 Gm Pack) 17 gm PO DAILY PRN PRN Reason: Constipation Stop: 08/20/20 03:46 Venlafaxine HCl (Venlafaxine Hcl Xr 75 Mg Capxr) 75 mg PO [facility] Stop: 08/20/20 08:59 Last Admin: 07/21/20 09:01 Dose: 75 mg Documented by:
[2020-07-21] MEDS ORDERED: ATORVASTATIN 20 MG TAB PO SCH (21:00)
[2020-07-22 05:44] LABS: Hematocrit (blood only) 32.6 % (37-47); Hemoglobin 11.2 g/dL (12.0-16.0); Mean Corpuscular Hemoglobin 33.8 pg (25-34); Mean Corpuscular Hgb Conc 34.4 g/dL (32-36); Mean Corpuscular Volume 98.5 fL (80-100); Mean Platelet Volume 9.3 fL (7.4-10.4); Platelet Count 261 K/uL (130-400); RDW Coefficient of Variation 12.2 % (11.5-14.5); RDW Standard Deviation 43.7 fL (36.4-46.3); Red Blood Count 3.31 M/uL (4.2-5.4); White Blood Count 8.28 K/uL (4.8-10.8)
[2020-07-22] MEDS: LEVOTHYROXINE SODIUM 50 MCG TABLET PO SCH (06:10)
[2020-07-22] MEDS: PIPERACILLIN/TAZOBACTAM 3.375 GM in DEXTROSE 5% 100 ML IV SCH (06:11)
[2020-07-22 06:13] LABS: BUN Creatinine Ratio 10.9 (10-20); Calcium 8.7 mg/dl (8.5-10.1); Est GFR (African American) 77.2; Est GFR (Non-African American) 66.6; Magnesium 2.5 mg/dl (1.8-2.4); Phosphorus 2.8 mg/dl (2.5-4.9); Potassium 4.1 mmol/L (3.5-5.1)
--- NOTE | 2020-07-22 07:22 | Hospitalist Progress Note ---
Date of Service July 22, 2020 Assessment & Plan (1) Sepsis: Secondary to complicated UTI Recent BSO for bilateral ovarian cysts Lactic acid 1.8 Blood cultures and urine culture pending Received cefepime on admission, concern for UTI as patient could not void At this point not clear if patient was actually septic on admission, white cell count elevated, could have been due to recent surgery Continue gentle IV hydration, broad spectrum Abx - dapto + zosyn Patient is now feeling better, she is able to void urine Gynecology consult for postop eval - Dr. Killian evaluated patient, discussed discharge Prediabetes Hyperglycemia possible prediabetes hemoglobin A1c 5.30 October 2018 Current A1c 6.0% -consistent with prediabetes Follow-up with PCP Chronic systolic heart failure secondary to nonischemic cardiomyopathy (EF 35 to 39%, TTE 2019), patient on the dry side history nonocclusive CAD as per records hx chronic LBBB Hypothyroidism, euthyroid as of today's TSH DVT prophylaxis. Lovenox subcu on admission, switched to SCDs Full code Admission and Anticipated Discharge Date Admission Date: July 21, 2020 Subjective Patient is sitting up in bed, in no acute distress. She said that she feels much better. Denies any urinary symptoms, and says that she can void without difficulty. Currently denies any fevers, chills, chest pain, shortness of breath, she has some abdominal discomfort which is expected postop, no nausea or vomiting. She is passing flatus. 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 Review of Systems Review of Systems: All systems reviewed & are unremarkable except as noted in HPI & below Constitutional: no fever and no chills Respiratory: no cough and no dyspnea Cardiovascular: no chest pain and no palpitations Gastrointestinal: + abdominal pain (Some abdominal discomfort, postop); no nausea and no vomiting Genitourinary: no dysuria and no difficulty urinating Physical Exam Physical Exam: GENERAL: Elderly female, sitting up in bed, in no acute distress HEENT: Normocephalic, atraumatic, EOMI, PERRL, pink palpebral conjunctivae NECK : Supple, no tenderness CHEST : CTAB no wheezing, rhonchi or crackles HEART : RRR, no obvious murmurs ABDOMEN: Positive bowel sounds, soft, surgical incisions noted, some mild bruising noted, mild tenderness to palpation EXTREMITIES : No LE swelling/tenderness, moves all 4 extremities spontaneously and without difficulty SKIN: warm, dry, surgical incisions noted on abdomen, and mild bruising, postop NEUROLOGIC : Alert and oriented x3, no facial asymmetry, speech fluent, moves all 4 extremities spontaneously Results & Data Results & Data ([facility]) Vital Signs (Past 12 Hours) Vital Signs Temp Pulse Resp BP Pulse Ox 07/22/20 07:11 36.8 C 85 16 131/74 93 Laboratory Results 07/22/20 07/22/20 Range/Units 05:30 05:30 WBC 8.28 (4.8-10.8) K/uL RBC 3.31 L (4.2-5.4) M/uL Hgb 11.2 L (12.0-16.0) g/dL Hct 32.6 L (37-47) % MCV 98.5 (80-100) fL MCH 33.8 (25-34) pg MCHC 34.4 (32-36) g/dL RDW Std Deviation 43.7 (36.4-46.3) fL RDW Coeff of Radha 12.2 (11.5-14.5) % Plt Count 261 (130-400) K/uL MPV 9.3 (7.4-10.4) fL Sodium 145 D (136-145) mmol/L Potassium 4.1 (3.5-5.1) mmol/L Chloride 111 H (98-107) mmol/L Carbon Dioxide 28 (21-32) mmol/L Anion Gap 6.0 (3-11) BUN 10 (7-18) mg/dl Creatinine 0.89 (0.6-1.2) mg/dl Est Cr Clr Drug Dosing 49.0 ml/min Est GFR ( Amer) 77.2 Est GFR (Non-Af Amer) 66.6 BUN/Creatinine Ratio 10.9 (10-20) Glucose 99 (70-99) mg/dl Calcium 8.7 (8.5-10.1) mg/dl Phosphorus 2.8 (2.5-4.9) mg/dl Magnesium 2.5 H (1.8-2.4) mg/dl Medications Administered Current Inpatient Medications Acetaminophen (Acetaminophen 325 Mg Tab) 650 mg PO Q4H PRN PRN Reason: pain/fever Stop: 08/20/20 03:46 Hydrocodone Bitart/Acetaminophen (Hydrocodone/Acetamophen 5/325mg Tab) 1 tab PO QID PRN PRN Reason: Pain Stop: 08/04/20 03:46 Last Admin: 07/21/20 19:53 Dose: 1 tab Documented by: Aspirin (Aspirin 81 Mg Ectab) 81 mg PO QAM [facility] Stop: 08/20/20 08:59 Last Admin: 07/21/20 09:01 Dose: 81 mg Documented by: Atorvastatin Calcium (Atorvastatin 20 Mg Tab) 20 mg PO HS [facility] Stop: 08/20/20 20:59 Last Admin: 07/21/20 19:53 Dose: 20 mg Documented by: Docusate Sodium (Docusate Sodium 100 Mg Cap) 100 mg PO DAILY [facility] Stop: 08/20/20 08:59 Last Admin: 07/21/20 09:01 Dose: 100 mg Documented by: Lorazepam (Ativan) 0.25 mg in 0.5 mls @ 0.5 mls/min IV Q4H PRN PRN Reason: Anxiety Stop: 08/20/20 01:43 Promethazine HCl 12.5 mg/ (Sodium Chloride) 50.5 mls @ 202 mls/hr IV Q6H PRN PRN Reason: Nausea And Vomiting Stop: 08/20/20 03:46 Piperacillin Sod/Tazobactam (Sod 3.375 gm/ Dextrose) 115 mls @ 28.75 mls/hr IV Q8H [facility]; Protocol Stop: 07/31/20 13:59 Last Admin: 07/22/20 06:11 Dose: 28.8 mls/hr Documented by: Daptomycin 200 mg/ Syringe 4 mls @ 2 mls/min IV Q24H [facility]; Protocol Stop: 07/31/20 08:59 Last Admin: 07/21/20 09:11 Dose: 2 mls/min Documented by: Ketorolac Tromethamine (Ketorolac Tromethamine 15 Mg/Ml Vial) 15 mg IV Q6H PRN PRN Reason: Pain Stop: 07/26/20 03:46 Levothyroxine Sodium (Levothyroxine Sodium 50 Mcg Tablet) 50 mcg PO DAILYBB [facility] Stop: 08/20/20 06:29 Last Admin: 07/22/20 06:10 Dose: 50 mcg Documented by: Lisinopril (Lisinopril 5 Mg Tab) 5 mg PO QAM [facility] Stop: 08/20/20 08:59 Last Admin: 07/21/20 09:01 Dose: 5 mg Documented by: Melatonin (Melatonin 3 Mg Tab) 6 mg PO HSZ PRN PRN Reason: Sleep Stop: 08/20/20 04:09 Metoprolol Succinate (Metoprolol Succ 25mg Ext Rel Tab) 12.5 mg PO QAM [facility] Stop: 08/20/20 02:09 Last Admin: 07/21/20 03:35 Dose: 12.5 mg Documented by: Miscellaneous Information (Daptomycin Consult Active) 1 ea N/A UD PRN PRN Reason: Consult Stop: 08/20/20 07:44 Miscellaneous Information (Piperacill/Tazobac Consult Active) 1 ea N/A UD PRN PRN Reason: Consult Stop: 08/20/20 07:47 Polyethylene Glycol (Polyethylene (Miralax) 17 Gm Pack) 17 gm PO DAILY PRN PRN Reason: Constipation Stop: 08/20/20 03:46 Venlafaxine HCl (Venlafaxine Hcl Xr 75 Mg Capxr) 75 mg PO QAM [facility] Stop: 08/20/20 08:59 Last Admin: 07/21/20 09:01 Dose: 75 mg Documented by:
[2020-07-22] MEDS ORDERED: AMOXICILLIN/CLAVULANATE 875 MG TAB PO SCH (08:00)
[2020-07-22] MEDS: VENLAFAXINE HCL XR 75 MG CAPXR PO SCH (09:01)
[2020-07-22] MEDS: DOCUSATE SODIUM 100 MG CAP PO SCH (09:01)
[2020-07-22] MEDS: lisinopriL 5 MG TAB PO SCH (09:01)
[2020-07-22] MEDS: ASPIRIN 81 MG ECTAB PO SCH (09:01)
[2020-07-22] MEDS: METOPROLOL SUCC 25MG EXT REL TAB PO SCH (09:01)
[2020-07-22] MEDS: DAPTOmycin 200 MG in SYRINGE 0 ML IV SCH (09:05)
--- NOTE | 2020-07-22 10:47 | Gynecologic Progress Note ---
Date of Service July 22, 2020 Assessment & Plan Admission and Anticipated Discharge Date Admission Date: July 21, 2020 Subjective [employer] Pt doing well No fever, chills . 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
[2020-07-22 11:56] LABS: BUN Creatinine Ratio 11.7 (10-20); Calcium 9.2 mg/dl (8.5-10.1); Creatinine Clr Calc Pharmacy 50.7 ml/min; Est GFR (African American) 80.5; Est GFR (Non-African American) 69.4; Potassium 4.2 mmol/L (3.5-5.1)
--- NOTE | 2020-07-22 12:49 | Discharge Summary ---
Date of Service July 22, 2020 Admission HPI Per Admitting Provider History obtained from patient and records. Medical history significant for chronic systolic heart failure secondary to nonischemic cardiomyopathy (EF 35 to 39%, TTE 2019), history nonocclusive CAD as per records, Chronic LBBB, hypothyroidism, mood disorder. Yesterday, patient underwent elective bilateral salpingo-oophorectomy at same- day surgery for bilateral ovarian cysts yesterday. n ER visit last October for left ovarian torsion. Post procedure yesterday, patient noted dysuria symptoms without urinary retention. No fever, no chills, no chest pain, no S OB. Not enough urine on postop bladder scan as per patient. Patient discharged home with instructions to drink a lot of water. At home, patient with bothersome urinary retention/dysuria later followed by nausea symptoms. No actual abdominal/flank pain as per patient. On the way to the ER, patient had episodes of emesis. Patient noted to be tremulous as she alighted from vehicle as per patient account. Urine noted to be very dark at the ER. Intractable symptoms at the ER. 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 Admission Exam Per Admitting Provider GENERAL: uncomfortable, anxious, no respiratory distress SKIN: Normal color, warm HEENT: [place] palpebral conjunctivae, no ptosis, dry buccal mucosa NECK : Supple, no tenderness CHEST : CTA, no tenderness HEART : RRR, no obvious murmurs ABDOMEN: Some distention, nontender EXTREMITIES : No LE swelling/tenderness, no other conspicuous deformities noted NEUROLOGIC : Coherent, no facial asymmetry, tremulous hands, no other gross focality Principal Diagnosis Urinary retention possibly side effect of anesthesia/use of Wing catheter Concern for possible infection/ sepsis, but infection not confirmed at this point Discharge Exam GENERAL: Elderly female, sitting up in bed, in no acute distress HEENT: Normocephalic, atraumatic, EOMI, PERRL, pink palpebral conjunctivae NECK : Supple, no tenderness CHEST : CTAB no wheezing, rhonchi or crackles HEART : RRR, no obvious murmurs ABDOMEN: Positive bowel sounds, soft, surgical incisions noted, some mild bruising noted, mild tenderness to palpation EXTREMITIES : No LE swelling/tenderness, moves all 4 extremities spontaneously and without difficulty SKIN: warm, dry, surgical incisions noted on abdomen, and mild bruising, postop NEUROLOGIC : Alert and oriented x3, no facial asymmetry, speech fluent, moves all 4 extremities spontaneously Discharge Data Allergies Allergy/AdvReac Type Severity Reaction Status Date / Time codeine AdvReac Mild difficulty Unverified 07/20/20 21:47 moving arms/legs Consultations 07/21/20 00:31 ED Decision to Admit Stat 07/21/20 03:47 Consult Gynecology Routine Hospital Course (1) Sepsis: Secondary to complicated UTI Recent BSO for bilateral ovarian cysts Lactic acid 1.8 Blood cultures and urine culture pending Received cefepime on admission, concern for UTI as patient could not void At this point not clear if patient was actually septic on admission, white cell count elevated, could have been due to recent surgery Continue gentle IV hydration, broad spectrum Abx - dapto + zosyn Patient is now feeling better, she is able to void urine Gynecology consult for postop eval - Dr. Killian evaluated patient, discussed discharge WBC is now down Clinically she is much improved, and back to baseline, afebrile As urine and blood cultures are still pending, will discharge patient on short course of Augmentin. Pt will need to follow-up with PCP to decide if any further antibiotic treatment is needed. Prediabetes Hyperglycemia possible prediabetes hemoglobin A1c 5.30 October 2018 Current A1c 6.0% -consistent with prediabetes Follow-up with PCP Chronic systolic heart failure secondary to nonischemic cardiomyopathy (EF 35 to 39%, TTE 2019), patient on the dry side history nonocclusive CAD as per records hx chronic LBBB Hypothyroidism, euthyroid as of today's TSH Total Time Total Time Spent Total Time Spent (In Minutes): 40 Total Time Includes: Examination of the Patient, Discharge Planning, Medication Reconciliation and Communication With Other Providers Discharge Plan Discharge Items Patient Disposition: Home - Self-Care Reason For Visit: SEPSIS Discharge Diagnosis: Urinary retention possibly side effect of anesthesia/use of Wing catheter Concern for possible infection/ sepsis, but infection not confirmed at this point Condition on Discharge: Good Activity: Per Instructions section Non-emergency contact: Primary Care Provider and Vehicle Washer Call non-emergency contact if: you have any medication questions and your symptoms worsen Follow-up/Referrals: Shahnaz Woodson MD [Primary Care Provider] - Diet: Regular Addtl Attending Provider Instructions: Continue antibiotic, Augmentin, as prescribed for now. Follow-up with primary care doctor in the next couple of days. Infection was not confirmed, however urine and blood cultures are still pending. Make sure to follow-up with primary care doctor to check on these cultures and see if any further antibiotic treatment is necessary. Pending Studies at Discharge: No Stand-Alone Forms: My [facility] [employer], Smoking Cessation Medications and DC Order Prescriptions: New amoxicillin-pot clavulanate [Augmentin] 875-125 mg Tablet 1 tab PO BIDM 2 Days Qty: 4 RF: 0 Continued aspirin 81 mg Tablet,Delayed Release (Dr/Ec) 81 mg PO QAM RF: 0 levothyroxine 50 mcg Tablet 50 mcg PO QAM RF: 0 venlafaxine 75 mg Tablet Extended Release 24hr 75 mg PO QAM RF: 0 diphenhydramine HCl [Benadryl] 25 mg Capsule 25 mg PO HS PRN (Reason: Sleep) RF: 0 melatonin 2.5 mg Tablet,Chewable 5 mg PO HS PRN (Reason: Sleep) RF: 0 hydrocodone-acetaminophen [Flasher] 5-325 mg tablet 1 tab PO Q8H PRN (Reason: pain) Qty: 9 RF: 0 lisinopril 5 mg Tablet 5 mg PO QAM RF: 0 atorvastatin 20 mg Tablet 20 mg PO HS RF: 0 metoprolol succinate 25 mg Tablet Extended Release 24 Hr 12.5 mg PO QAM RF: 0 ibuprofen 600 mg Tablet 600 mg PO Q6H Qty: 30 RF: 0 Discharge Orders: Discharge Order (Routine); Ordered 07/22/20 Ordered By: Arsalan Anne/Other Patient Handouts: Prediabetes, Diabetes: Meal Planning, A1C Admission Data Admit Date/Time: 07/21/20 01:49 Attending Provider: Arsalan Guzman Admit Provider: Blair Gordon Primary Care Provider: Shahnaz Woodson Other Providers: Blair Gordon ; Drake Hogue
--- NOTE | 2020-07-27 13:14 | Coding Query ---
PATHOLOGY To promote full compliance with coding requirements relating to patient care, physician participation is requested in all cases of master technician uncertainty. Please assist us with the question(s) below: Please review the culture results and please document any relevant diagnosis(es) or rule outs below: Diagnosis(es): Final blood cultures negative, urine cltx negative, post op infection/sepsis not likely Thank you Tori LEBRON
== END 2020-07-22 13:48 | disposition home or self-care (01) | DRG 982 ==
LOC: ED 21:09 → 3E 07-21 01:49